=== PATIENT | female | born 1955 | race Caucasian/White ===

== ENCOUNTER 2018-02-13 13:30 | Emergency (ER) | payer MEDICARE | END 2018-02-13 14:07 | disposition home or self-care (01) | LOC: NAV ERS 13:30 | DX: G89.18 Other acute postprocedural pain (principal); K08.89 Other specified disorders of teeth and supporting structures; L25.9 Unspecified contact dermatitis, unspecified cause; E03.9 Hypothyroidism, unspecified; I10 Essential (primary) hypertension; F41.9 Anxiety disorder, unspecified; F17.210 Nicotine dependence, cigarettes, uncomplicated; Z79.899 Other long term (current) drug therapy | CPT/HCPCS: 99282 ==

== ENCOUNTER 2018-08-10 13:07 | Outpatient (CLI) | payer MEDICARE ==
--- NOTE | 2018-08-10 14:48 | RAD ---
RIGHT KNEE 2 VIEWS: Date: 08/10/18 HISTORY: Right knee pain. FINDINGS/IMPRESSION: There is tricompartmental degenerative change manifested by osteophyte formation and joint space narr owing. No fracture, dislocation, or bony destruction is seen. There is fullness in the suprapatellar pouch indicative of joint effusion. POS: ROCKY
--- NOTE | 2018-08-10 14:51 | RAD ---
LEFT KNEE 2 VIEWS: Date: 08/10/18 HISTORY: Left knee pain. FINDINGS/IMPRESSION: There are degenerative changes in all three compartments of the knee joint manifested by osteophyte f ormation and joint space narrowing. No fracture, dislocation, or bony destruction is seen. POS: TAMMI
== END 2018-08-10 13:08 | disposition home or self-care (01) ==
LOC: NAV RAD 13:07
PROVIDERS: ATTEND Nurse Practitioner Family
DX: M25.562 Pain in left knee (principal); M25.561 Pain in right knee; M17.0 Bilateral primary osteoarthritis of knee; M25.861 Other specified joint disorders, right knee; M25.862 Other specified joint disorders, left knee

== ENCOUNTER 2019-03-31 10:35 | Outpatient (CLI) | payer MEDICARE ==
--- NOTE | 2019-03-31 12:43 | RAD ---
LEFT ANKLE 3 VIEWS: Date: 03/31/19 HISTORY: Ankle injury with pain. FINDINGS: Mild soft tissue swelling at the ankle. No evidence of acute fracture. IMPRESSION: No evidence of fracture. POS: OFF
== END 2019-03-31 10:36 | disposition home or self-care (01) ==
LOC: NAV RAD 10:35
PROVIDERS: ATTEND Nurse Practitioner Family
DX: S99.912S Unspecified injury of left ankle, sequela (principal)

== ENCOUNTER 2021-04-07 15:09 | Emergency (ER) | payer MEDICARE ==
[2021-04-07] MEDS ORDERED: predniSONE 20 MG TAB ONE (15:56)
== END 2021-04-07 16:00 | disposition home or self-care (01) ==
LOC: NAV ERS 15:09
DX: L23.7 Allergic contact dermatitis due to plants, except food (principal); E03.9 Hypothyroidism, unspecified; I10 Essential (primary) hypertension; F17.210 Nicotine dependence, cigarettes, uncomplicated; Z79.899 Other long term (current) drug therapy
CPT/HCPCS: 99282; J7512

== ENCOUNTER 2021-05-08 10:12 | Outpatient (CLI) | payer MEDICARE, OTHER | END 2021-05-08 10:13 | disposition home or self-care (01) | LOC: NAV RAD 10:12 | PROVIDERS: ATTEND Nurse Practitioner Family | DX: M25.512 Pain in left shoulder (principal) ==